=== PATIENT | female | born 1990 | race Caucasian/White ===

== ENCOUNTER 2021-11-27 13:02 | Emergency (ER) | payer SELFPAY ==
[~2021-11-27] VITALS: Ht 162.6 cm; Wt 110.7 kg
[2021-11-27 13:04] VITALS: BP 119/92
--- NOTE | 2021-11-27 13:45 | NUR ---
/ PRESENTS TO ED WITH C/O EAR PAIN X2 DAYS, DENIES RECENT FEVES, COUGH, CHILLS. PATIENT DENIES RECENT SICK CONTACTS, OR DRAINAGE FROM EAR.
[2021-11-27 13:54] VITALS: BP 119/92
--- NOTE | 2021-11-27 13:54 | NUR ---
Patient discharged with v/s stable. Written and verbal after care instructions ABOUT [facility] [employer] given and explained. Patient verbalized understanding. Ambulatory with steady gait. All questions addressed prior to discharge. Advised to follow up with PMD.
== END 2021-11-27 13:54 | disposition home or self-care (01) ==
LOC: MED 13:02
DX: H61.21 Impacted cerumen, right ear (principal)
CPT/HCPCS: 99282